=== PATIENT | female | born 1970 | race Caucasian/White ===

== ENCOUNTER 2023-08-18 10:41 | Outpatient (CLI) | payer BC, SELFPAY ==
[2023-08-21 11:01] LABS: Varicella IgG Antibody Positive (See Note)
== END 2023-08-18 10:42 ==
LOC: LBO 08-23 10:42
PROVIDERS: Visit Provider Family Medicine
DX: Z01.84 Encounter for antibody response examination (principal)
CPT/HCPCS: 36415; 86787